=== PATIENT | male | born 1970 | race Caucasian/White ===

== ENCOUNTER 2023-09-24 17:20 | Inpatient (IN) | payer MEDICAID, OTHER ==
[~2023-09-24] VITALS: Ht 182.9 cm; Wt 98.2 kg
[~2023-09-24 17:20] MED LIST: HEPARIN DRIP/D5W 100UNITS/ML 250 ML IV SCH
[2023-09-24 17:35] VITALS: PULSE 122; RESP 16; O2SAT 96
[2023-09-24] MEDS: hydrALAZINE HCL 20 MG/ML VL IV ONE (18:20)
[2023-09-24 19:04] LABS: Basophils # (auto) 0 10 ^3/uL (0-0.2); Basophils % (auto) 0.5 % (0.0-2.0); Eosinophils # (auto) 0.1 10 ^3/uL (0-0.8); Neutrophils # (auto) 6.9 10 ^3/uL (1.6-8.6); Nucleated Red Blood Cells % 0.3 %; White Blood Cell 10.2 10^3/uL (4.4-10.8)
[2023-09-24 19:06] LABS: Eosinophils % (auto) 0.9 % (0.0-7.0); Hematocrit 48.3 % (41.0-53.0); Hemoglobin 16.3 g/dL (13.5-17.5); Lymphocytes # (auto) 2.7 10 ^3/uL (0.4-5.4); Lymphocytes % (auto) 26.4 % (10.0-50.0); Mean Corpuscular Hemoglobin 26.8 pg (28.0-32.0); Mean Corpuscular Hgb Conc. 33.7 g/dL (32.0-36.0); Mean Corpuscular Volume 79.6 fL (80.0-100.0); Monocytes # (auto) 0.5 10 ^3/uL (0-1.3); Monocytes % (auto) 4.8 % (0.0-12.0); Neutrophils % (auto) 67.4 % (37.0-80.0); Red Blood Cells 6.07 10^6/uL (4.5-5.90)
[2023-09-24 19:19] LABS: Urine Bacteria None Seen /hpf (None Seen)
[2023-09-24 19:20] LABS: INR 1.05 (0.9-1.15); Partial Thromboplastin Time 25.9 SEC (24.5-34.5); Prothrombin Time 11.1 sec (9.3-11.8)
[2023-09-24 19:25] LABS: Alanine Aminotransferase 29 U/L (7-40); Albumin 4.7 g/dL (3.2-4.8); Alkaline Phosphatase 135 U/L (46-116); Anion Gap 14 (5-15); Aspartate Aminotransferase 15 U/L (13-40); BUN/Creatinine Ratio 17.4 (10.0-20.0); Bilirubin, Total 0.8 mg/dL (0.2-1.0); Blood Urea Nitrogen 19 mg/dL (9-23); Calcium 10.2 mg/dL (8.5-10.1); Carbon Dioxide 23 mmol/L (20-30); Chloride 100 mmol/L (98-107); Glucose 321 mg/dL (74-106); Potassium 4.9 mmol/L (3.5-5.1); Sodium 137 mmol/L (136-145); Total Protein 7.6 g/dL (5.7-8.2)
[2023-09-24 19:31] LABS: Urine Blood Negative /uL (Negative); Urine Clarity Clear (Clear); Urine Color Light-Yellow (Yellow); Urine Protein, UAD Negative (Negative); Urine Specific Gravity 1.041 (1.001-1.035); Urine Urobilinogen Normal (Negative); Urine WBC <1 /hpf (0 - 3)
[2023-09-24 19:35] VITALS: PULSE 119; RESP 27; O2SAT 98
[2023-09-24] MEDS ORDERED: InsuLIN REG 1unit/0.01ml Soln (100units/ml) IV ONE (19:45)
[2023-09-24 19:46] LABS: Base Excess -4.8 mmol/L (-2.0-2.0)
[2023-09-24] MEDS: ENOXAPARIN SOD 100 MG/1 ML SYRINGE SC ONE (19:52)
[2023-09-24] MEDS: IOHEXOL 350 MG/ML 100ML IJ ONE (19:53)
[2023-09-24] MEDS: HEPARIN SODIUM (PORCINE) 5000 UNITS/ML 1ML VIAL IV ONE (21:30)
[2023-09-24] MEDS ORDERED: ACETAMINOPHEN 325 MG TAB PO PRN (22:00)
[2023-09-24] MEDS ORDERED: HYDROcodone-ACET 5/325MG TAB PO PRN (22:00)
[2023-09-24] MEDS ORDERED: ONDANSETRON HCL 4 MG/2 ML VIAL IV PRN (22:00)
[2023-09-24] MEDS ORDERED: DEXTROSE (50%) 50ML SYRG IV PRN (22:00)
[2023-09-24] MEDS ORDERED: hydrALAZINE HCL 20 MG/ML VL IV PRN (22:00)
[2023-09-24] MEDS: FAMOTIDINE (10MG/ML) 2ML VL IV SCH (23:00)
[2023-09-24] MEDS: SODIUM CHLORIDE 0.9% 1,000 ML IV SCH (23:01)
[2023-09-25] MEDS ORDERED: MORPHINE SULFATE INJ 2 MG/ml SYRG IV PRN
[2023-09-25] MEDS ORDERED: NITROGLYCERIN 0.4 MG SL TAB SL PRN
[2023-09-25] MEDS: ACCU-CHEK COMFORT CURVE STRIP VI SCH (00:25)
[2023-09-25] MEDS: InsuLIN REG 1unit/0.01ml Soln (100units/ml) SC SCH (00:26)
[2023-09-25] MEDS: HEPARIN DRIP/D5W 100UNITS/ML 250 ML IV SCH ×2 (06:03→13:15)
[2023-09-25 06:34] LABS: Basophils # (auto) 0 10 ^3/uL (0-0.2); Basophils % (auto) 0.7 % (0.0-2.0); Eosinophils # (auto) 0.1 10 ^3/uL (0-0.8); Eosinophils % (auto) 1.6 % (0.0-7.0); Hematocrit 46.2 % (41.0-53.0); Hemoglobin 15.7 g/dL (13.5-17.5); Lymphocytes # (auto) 2.7 10 ^3/uL (0.4-5.4); Lymphocytes % (auto) 38.3 % (10.0-50.0); Mean Corpuscular Hemoglobin 27.3 pg (28.0-32.0); Mean Corpuscular Volume 80.3 fL (80.0-100.0); Monocytes # (auto) 0.5 10 ^3/uL (0-1.3); Monocytes % (auto) 7.1 % (0.0-12.0); Neutrophils # (auto) 3.7 10 ^3/uL (1.6-8.6); Neutrophils % (auto) 52.3 % (37.0-80.0); Nucleated Red Blood Cells % 0.3 %; Red Blood Cells 5.75 10^6/uL (4.5-5.90); Red Cell Distribution Width 13.5 % (11.8-14.3); White Blood Cell 7.1 10^3/uL (4.4-10.8)
[2023-09-25 06:44] LABS: Alanine Aminotransferase 22 U/L (7-40); Alkaline Phosphatase 112 U/L (46-116); Anion Gap 10 (5-15); BUN/Creatinine Ratio 16.3 (10.0-20.0); Blood Urea Nitrogen 14 mg/dL (9-23); Calcium 9.5 mg/dL (8.5-10.1); Carbon Dioxide 23 mmol/L (20-30); Chloride 105 mmol/L (98-107); Potassium 4.7 mmol/L (3.5-5.1); Sodium 138 mmol/L (136-145)
[2023-09-25 06:45] LABS: Albumin 4.3 g/dL (3.2-4.8); Aspartate Aminotransferase 10 U/L (13-40); Bilirubin, Total 0.7 mg/dL (0.2-1.0); Glucose 141 mg/dL (74-106); Total Protein 7.2 g/dL (5.7-8.2)
[2023-09-25 08:14] VITALS: PULSE 100; RESP 18; O2SAT 98
[2023-09-25 12:58] LABS: INR 1.11 (0.9-1.15); Prothrombin Time 11.7 sec (9.3-11.8)
[2023-09-25 13:05] LABS: Partial Thromboplastin Time 76.3 SEC (24.5-34.5)
[2023-09-25 19:30] VITALS: PULSE 118; RESP 93; O2SAT 94
[2023-09-25 19:49] LABS: INR 1.07 (0.9-1.15); Partial Thromboplastin Time 67.7 SEC (24.5-34.5); Prothrombin Time 11.3 sec (9.3-11.8)
[2023-09-25 20:47] VITALS: BP 140/73; PULSE 83; RESP 20; TEMP 98.6; O2SAT 96
[2023-09-26] VITALS (10 sets, daily range): BP systolic 113–149; BP diastolic 71–96; PULSE 99–117; RESP 13–18; TEMP 97.7–98.6; O2SAT 95–98
[2023-09-26] MEDS: HEPARIN DRIP/D5W 100UNITS/ML 250 ML IV SCH ×2 (00:22→16:47)
[2023-09-26 06:40] LABS: Anion Gap 8 (5-15); Basophils # (auto) 0 10 ^3/uL (0-0.2); Basophils % (auto) 0.6 % (0.0-2.0); Carbon Dioxide 23 mmol/L (20-30); Chloride 108 mmol/L (98-107); Eosinophils # (auto) 0.2 10 ^3/uL (0-0.8); Eosinophils % (auto) 2.6 % (0.0-7.0); Hematocrit 45.3 % (41.0-53.0); Hemoglobin 15.4 g/dL (13.5-17.5); Lymphocytes % (auto) 42.2 % (10.0-50.0); Mean Corpuscular Hemoglobin 27.3 pg (28.0-32.0); Mean Corpuscular Hgb Conc. 34.1 g/dL (32.0-36.0); Mean Corpuscular Volume 80.1 fL (80.0-100.0); Monocytes # (auto) 0.6 10 ^3/uL (0-1.3); Monocytes % (auto) 7.9 % (0.0-12.0); Neutrophils # (auto) 3.4 10 ^3/uL (1.6-8.6); Neutrophils % (auto) 46.7 % (37.0-80.0); Nucleated Red Blood Cells % 0.4 %; Potassium 4.1 mmol/L (3.5-5.1); Red Blood Cells 5.65 10^6/uL (4.5-5.90); Red Cell Distribution Width 13.1 % (11.8-14.3); Sodium 139 mmol/L (136-145); White Blood Cell 7.2 10^3/uL (4.4-10.8)
[2023-09-26 06:41] LABS: Calcium 9.6 mg/dL (8.7-10.4)
[2023-09-26 06:46] LABS: BUN/Creatinine Ratio 24.7 (10.0-20.0); Blood Urea Nitrogen 22 mg/dL (9-23); Glucose 164 mg/dL (74-106)
[2023-09-26] MEDS: IOHEXOL 350 MG/ML 100ML IJ ONE (08:53)
[2023-09-26] MEDS: LIDOCAINE 2%HCL (LOCAL ANESTH.) INJ 20ML MDV ONE (08:53)
[2023-09-26] MEDS: HEPARIN IN NS 1000Units/500mL 1,500 ML ONE (08:53)
[2023-09-26] MEDS: fentaNYL CITRATE 100 MCG/2 ML VL ONE ×2 (09:10→11:39)
[2023-09-26] MEDS: HEPARIN SODIUM (PORCINE) 5000 UNITS/ML 1ML VIAL ONE ×3 (09:10→11:20)
[2023-09-26] MEDS: MIDAZOLAM HCL 2MG/2ML 2ml VIAL (1mg/ml) ONE ×2 (09:10→11:39)
[2023-09-26] MEDS: IODIXANOL 320MG/ML 100ML BTL IV ONE (10:57)
[2023-09-26 14:49] LABS: INR 1.13 (0.9-1.15); Prothrombin Time 11.9 sec (9.3-11.8)
[2023-09-26 15:11] LABS: Partial Thromboplastin Time > 139.0 SEC (24.5-34.5)
[2023-09-26 23:24] LABS: INR 1.08 (0.9-1.15); Prothrombin Time 11.4 sec (9.3-11.8)
[2023-09-27] VITALS (8 sets, daily range): BP systolic 113–128; BP diastolic 77–87; PULSE 86–110; RESP 16–20; TEMP 97.1–98.6; O2SAT 96–98
[2023-09-27] MEDS: HEPARIN DRIP/D5W 100UNITS/ML 250 ML IV SCH (00:11)
[2023-09-27 06:24] LABS: INR 1.08 (0.9-1.15); Prothrombin Time 11.4 sec (9.3-11.8)
[2023-09-27 06:39] LABS: Anion Gap 9 (5-15); Carbon Dioxide 21 mmol/L (20-30); Chloride 105 mmol/L (98-107); Potassium 4.8 mmol/L (3.5-5.1); Sodium 135 mmol/L (136-145)
[2023-09-27 06:40] LABS: Calcium 9.8 mg/dL (8.7-10.4)
[2023-09-27 06:45] LABS: BUN/Creatinine Ratio 20.2 (10.0-20.0); Blood Urea Nitrogen 20 mg/dL (9-23); Glucose 199 mg/dL (74-106)
[2023-09-27 06:48] LABS: Basophils # (auto) 0 10 ^3/uL (0-0.2); Basophils % (auto) 0.5 % (0.0-2.0); Eosinophils # (auto) 0.1 10 ^3/uL (0-0.8); Eosinophils % (auto) 1.3 % (0.0-7.0); Hematocrit 44.6 % (41.0-53.0); Hemoglobin 15.2 g/dL (13.5-17.5); Lymphocytes # (auto) 2.7 10 ^3/uL (0.4-5.4); Lymphocytes % (auto) 30.6 % (10.0-50.0); Mean Corpuscular Hemoglobin 27.3 pg (28.0-32.0); Mean Corpuscular Volume 80.2 fL (80.0-100.0); Monocytes # (auto) 0.8 10 ^3/uL (0-1.3); Monocytes % (auto) 8.9 % (0.0-12.0); Neutrophils # (auto) 5.1 10 ^3/uL (1.6-8.6); Neutrophils % (auto) 58.7 % (37.0-80.0); Nucleated Red Blood Cells % 0.2 %; Red Blood Cells 5.56 10^6/uL (4.5-5.90); Red Cell Distribution Width 12.8 % (11.8-14.3); White Blood Cell 8.7 10^3/uL (4.4-10.8)
[2023-09-27 11:53] LABS: INR 1.08 (0.9-1.15); Prothrombin Time 11.4 sec (9.3-11.8)
[2023-09-27 19:48] LABS: INR 1.12 (0.9-1.15); Partial Thromboplastin Time 51.7 SEC (24.5-34.5); Prothrombin Time 11.8 sec (9.3-11.8)
[2023-09-27] MEDS: DOCUSATE SOD 100 MG CAP PO PRN (21:44)
[2023-09-28] VITALS (7 sets, daily range): BP systolic 110–124; BP diastolic 74–85; PULSE 90–98; RESP 18–20; TEMP 97.8–98.3; O2SAT 94–98
[2023-09-28 01:11] LABS: Basophils # (auto) 0 10 ^3/uL (0-0.2); Basophils % (auto) 0.5 % (0.0-2.0); Eosinophils # (auto) 0.1 10 ^3/uL (0-0.8); Eosinophils % (auto) 1.9 % (0.0-7.0); Hematocrit 42.8 % (41.0-53.0); Hemoglobin 14.2 g/dL (13.5-17.5); Lymphocytes # (auto) 3.3 10 ^3/uL (0.4-5.4); Lymphocytes % (auto) 46.7 % (10.0-50.0); Mean Corpuscular Hemoglobin 27.2 pg (28.0-32.0); Mean Corpuscular Hgb Conc. 33.3 g/dL (32.0-36.0); Mean Corpuscular Volume 81.6 fL (80.0-100.0); Monocytes # (auto) 0.6 10 ^3/uL (0-1.3); Monocytes % (auto) 8.9 % (0.0-12.0); Neutrophils # (auto) 2.9 10 ^3/uL (1.6-8.6); Nucleated Red Blood Cells % 0.1 %; Red Blood Cells 5.24 10^6/uL (4.5-5.90); Red Cell Distribution Width 13.1 % (11.8-14.3)
[2023-09-28 01:40] LABS: INR 1.09 (0.9-1.15); Prothrombin Time 11.5 sec (9.3-11.8)
[2023-09-28 01:43] LABS: Partial Thromboplastin Time 81.4 SEC (24.5-34.5)
[2023-09-28 09:05] LABS: INR 1.12 (0.9-1.15); Prothrombin Time 11.8 sec (9.3-11.8)
[2023-09-28 09:15] LABS: Partial Thromboplastin Time 72.9 SEC (24.5-34.5)
[2023-09-28 14:44] LABS: INR 1.1 (0.9-1.15); Prothrombin Time 11.6 sec (9.3-11.8)
[2023-09-28 20:46] LABS: INR 1.12 (0.9-1.15); Partial Thromboplastin Time 62.9 SEC (24.5-34.5); Prothrombin Time 11.8 sec (9.3-11.8)
[2023-09-28] MEDS: HEPARIN DRIP/D5W 100UNITS/ML 250 ML IV SCH (23:00)
[2023-09-29] VITALS (7 sets, daily range): BP systolic 113–157; BP diastolic 79–105; PULSE 77–92; RESP 20; TEMP 97.3–98.1; O2SAT 95–97
[2023-09-29 06:43] LABS: INR 1.04 (0.9-1.15)
[2023-09-29] MEDS: HEPARIN DRIP/D5W 100UNITS/ML 250 ML IV SCH (06:59)
[2023-09-29] MEDS ORDERED: HEPARIN DRIP/D5W 100UNITS/ML 250 ML IV SCH (09:00)
[2023-09-29] MEDS: APIXABAN 5 MG TAB PO SCH (14:08)
[2023-09-29] MEDS: POLYETHYLENE GLYCOL 17 GM PWDR PO ONE (14:59)
[2023-09-29 15:06] LABS: INR 1.08 (0.9-1.15); Partial Thromboplastin Time 30.7 SEC (24.5-34.5); Prothrombin Time 11.4 sec (9.3-11.8)
[2023-09-29] MEDS ORDERED: APIX5TAB PO (16:34)
[2023-10-06] MEDS ORDERED: APIXABAN 5 MG TAB PO SCH (22:00)
== END 2023-09-29 18:30 | disposition home or self-care (01) | DRG 134 ==
LOC: ER 17:20 → TELE 23:47 → TELE-E-ADS 09-25 20:38
PROVIDERS: ADMIT Nurse Practitioner Family; ATTEND Internal Medicine
PROC: 02CR3ZZ Extirpation of Matter from Left Pulmonary Artery, Percutaneous Approach (ICD-10-PCS; principal; 2023-09-26)
PROC: B31T1ZZ Fluoroscopy of Left Pulmonary Artery using Low Osmolar Contrast (ICD-10-PCS; 2023-09-26)
DX: I26.92 Saddle embolus of pulmonary artery without acute cor pulmonale (principal); J96.01 Acute respiratory failure with hypoxia; J98.11 Atelectasis; I10 Essential (primary) hypertension; E11.9 Type 2 diabetes mellitus without complications; I82.412 Acute embolism and thrombosis of left femoral vein; I82.432 Acute embolism and thrombosis of left popliteal vein; Z79.84 Long term (current) use of oral hypoglycemic drugs; Z79.899 Other long term (current) drug therapy; Z79.01 Long term (current) use of anticoagulants
CPT/HCPCS: 36415; 36600; 37184; 71045; 71275; 80048; 80053; 81001; 82805; 82962; 83036; 83880; 84484; 85025; 85610; 85730; 86850; 86900; 86901; 93005; 93306; 93971; 96361; 96365; 96366; 96372; 96375; 99152; 99291; C1769; C1894; G0378; J1815; J2250; J3490; Q9967